=== PATIENT | male | born 1975 | race African-American/Black ===

== ENCOUNTER 2018-01-06 13:18 | Emergency (ER) | payer OTHER ==
[~2018-01-06] VITALS: Ht 185.4 cm; Wt 88.0 kg
[2018-01-06 13:28] VITALS: Ht 185.4 cm; Wt 88.0 kg
[2018-01-06 14:50] VITALS: BP 141/94
== END 2018-01-06 14:50 | disposition home or self-care (01) ==
LOC: ED 13:18
DX: L72.3 Sebaceous cyst (principal); Z88.5 Allergy status to narcotic agent
CPT/HCPCS: Q0162